=== PATIENT | male | born 1995 | race Caucasian/White ===

== ENCOUNTER 2025-01-16 06:39 | Emergency (ER) | payer OTHER, SELFPAY ==
[2025-01-16 06:40] VITALS: BP 133/96; PULSE 69; RESP 12; TEMP 36.1; O2SAT 98; BMI 31.5
--- NOTE | 2025-01-16 06:59 | ED.BACK ---
HPI - Back Pain/Injury General Chief Complaint: Back Pain/Injury Stated Complaint: Back Pain Time Seen by Provider: 01/16/25 06:48 Source: patient and family Mode of arrival: ambulatory Limitations: no limitations History of Present Illness ED Provider: DR. Sotelo HPI Narrative: 29-year-old male came in for evaluation of low back pain radiating to the right leg x1 week after playing golf, pain is severe 01/21, patient otherwise declined numbness or weakness, no urinary or stool incontinence, patient's pain worsening with movement or bending. No history of IV drug abuse, no fever, no chills. Related Data Previous Rx's ?Medication ?Instructions ?Recorded cyclobenzaprine 10 mg tablet 10 mg PO TID PRN muscle spasm #14 01/16/25 tabs oxycodone 5 mg tablet 5 mg PO Q6H PRN pain #14 tabs 01/16/25 Allergies Allergy/AdvReac Type Severity Reaction Status Date / Time No Known Allergies Allergy Verified 01/16/25 06:43 Review of Systems Review of Systems: All other systems are reviewed and are negative Constitutional: Reports as per HPI and Reports no additional constitutional complaints Eyes: Reports as per HPI and Reports no additional eye complaints Reports system reviewed and no additional complaints, except as documented Cardiovascular: Reports as per HPI and Reports no additional cardiovascular complaints Respiratory: Reports as per HPI and Reports no additional respiratory complaints Gastrointestinal: Reports as per HPI and Reports no additional gastrointestinal complaints Genitourinary: Reports no additional female genitourinary complaints Musculoskeletal: Reports no additional musculoskeletal complaints Skin/Breast: Reports system reviewed and no additional complaints, except as docu Psychiatric: Reports no additional psychiatric complaints Endocrine: Reports no additional endocrine complaints Hematologic/Lymphatic: Reports no additional hematologic/lymphatic complaints Allergic/Immunologic: Reports no additional allergic/immunologic complaints Reports system reviewed and no additional complaints, except as documented and Reports Abnormal speech present [facility] Social History Social History Do you have a plan to hurt others: No Plan Physical Exam Vital Signs: Vital Signs: Last Vital Signs Temp 96.9 F 01/16/25 06:40 Pulse 69 01/16/25 06:40 Resp 12 01/16/25 06:40 BP 133/96 H 01/16/25 06:40 Pulse Ox 98 01/16/25 06:40 O2 Del Method Room Air 01/16/25 06:40 BMI result Body Mass Index 31.5 Vital signs have been reviewed and appear to be correct. Blood pressure elevated. Heart rate normal. Respiratory rate normal. Temperature normal. Oxygen saturation normal. Appearance: Alert. Oriented X3. No acute distress. Head: Normal external exam. Normocephalic. Atraumatic. No Cueva signs noted. No raccoon eyes noted Eyes: PERRLA. EOMI. Conjunctiva and sclera normal. Eyelids normal. ENT: TM's Normal. Pharynx normal. Uvula midline. Moist mucous membranes. No trismus noted. No drooling noted. No muffled voice noted. Neck: Normal inspection. Neck supple. FROM. No adenopathy. Thyroid Normal. No meningeal signs. No neck mass noted. CVS: Normal heart rate and rhythm. Heart sound normal. No murmurs noted. Pulses normal throughout. Respiratory: No respiratory distress. Painless inspiration. Breath sounds normal. No wheezes/rales/rhonchi noted. Chest nontender. No accessory muscle usage noted or decreased air movement noted. Abdomen: Soft and nontender. Bowel sounds normal in all 4 quadrants. No distention noted. No organomegaly noted. No visible injury noted. Back: No CVA tenderness. Full range of motion noted. Skin: Skin warm and dry. Normal skin color. Normal skin turgor. No rashes/lesions/lacerations noted. Extremities: No lower extremity edema. Extremities exhibit normal range of motion. Extremities nontender. Neuro: Mental status: Normal attention, orientation, memory, and affect. Cranial nerves: Pupils are equal, round and reactive to light, EOMI, visual jack are fall, face is symmetric, facial sensations are normal. Motor examination normal muscle tone, strength to 4 extremities. DTR are +2, planter's are flexor. Sensory exam; normal coordination, no ataxia, gait stable. Cerebellar exam: Jqmcde-tv-mfyj and gfru-zh-heau is normal. Extrapyramidal system: No tremors, no rigidity with normal facial expressions. Pronator drift not present Course Reevaluation(s) Reevaluation #1: Lumbar radiculopathy. Rest, heating pad, muscle relaxant, pain control, follow-up with Dr. taylor for further evaluation. Will discharge on oxycodone muscle relaxant. Time: 07:04 Medical Decision Making Differential Diagnosis Differential Diagnoses: The differential diagnosis associated with the presentation includes (Myofascial low back pain, lumbar radiculopathy muscle,) Admission/Observation Consideration of admission/observation: Escalation of care including admission/observation considered Lab Data MDM Lab Attestation statement: I reviewed the patient's lab results. Discharge Plan Discharge Clinical Impression: Lumbar radiculopathy Patient Disposition: Home, Self-Care Instructions: Lumbar Radiculopathy (ED) Prescriptions: New oxycodone 5 mg tablet 5 mg PO Q6H PRN (Reason: pain) Qty: 14 0RF Rx Instructions: Partial Fill upon patient request. cyclobenzaprine 10 mg tablet 10 mg PO TID PRN (Reason: muscle spasm) Qty: 14 0RF Referrals: Emmanuel Christianson MD [Primary Care Provider, Internal Medicine] Matthew Zheng MD, PhD [Physician, Neuro Spine]
--- OUTSIDE RECORDS SUMMARY | 2025-01-16 07:50 | XMS_ITS | Clinical Summary ---
Author Organization [facility] Address [address] [place] [address] Phone Care Team Providers Care Colon Therapist Name Role Phone Marcos Roldan MD Primary Care Provider Allergies No known active allergies Medications albuterol 90 mcg/actuation inhalerIndicatio ns:Fever, unspecified,Acut e upper respiratory infection,Wheezi ng Inhale 2 puffs into the lungs every 4 (four) hours as needed for wheezing or shortness of breath/dyspnea . 18 g Active Active Problems No known active problems Social History Tobacco Use Types Packs/Day Years Used Date Smoking Tobacco: Never Smokeless Tobacco: Never Tobacco Cessation:Counseling Given: Not Answered Alcohol Use Standard Drinks/Week Comments Yes 0 (1 standard drink = 0.6 oz pur e alcohol) Education Answer Date Recorded Are you interested in more education? Not on osmar e 07/13/2024 Are you concerned about learning? Not on file 07/13/2024 No 07/13/2024 No 07/13/2024 Digital Access Answer Date Recorded No 07/13/2024 No 07/13/2024 Reliable internet access at home? Not on file 07/13/2024 Device with a working camera? Not on file Sex and Gender Information Value Date Recorded Sex Assigned at Not on file Legal Sex Male 8:53 PM EDT Gender Identity Not on file Sexual Orientation Not on file Last Filed Vital Signs Vital Sign Reading Time Taken Comments Blood Pressure 144/89 07/13/2024 10:31 AM EDT Pulse 89 07/13/2024 10:31 AM EDT Temperature 36.7 C (98.1 F) 07/13/2024 10:31 AM EDT Respiratory Rate 20 07/13/2024 10:31 AM EDT Oxygen Saturation 97% 07/13/2024 10:31 AM EDT Inhaled Oxygen Concentration - - Weight 111.1 kg (245 lb) 07/13/2024 10:31 AM EDT Height 188 cm (6' 2 ) 07/13/2024 10:31 AM EDT Body Mass Index 31.46 07/13/2024 10:31 AM EDT Plan of Treatment Health Maintenance Due Date Last Done Comments DEPRESSION SCREENING 2006 HEPATITIS C SCREENING 2012 HIV ONE-TIME SCREENING (18-65 YEARS) 2012 INFLUENZA VACCINE (#1) 2024 02/09/2009, 2008 COVID-19 VACCINE ( season) 2024 04/09/2021, 08/31/2020, 08/03/2020 Adult Td,Tdap Booster 05/27/2030 05/27/2020 , 11/10/2009, 09/24/2004, Additional history exists HIB VACCINES Completed 11/17/1995, 01/14, 1994, Additional history exists MENINGOCOCCAL VACCINES (ACWY) Completed 11/12/2012, 11/02/2007 SMOKING STATUS SCREENING (Once After 26 Yrs) Completed 07/13/2024 HEPATITIS A VACCINES Aged Out No long er eligible based on patient's age to complete this topic MENINGOCOCCAL VACCINES (B) Aged Out N o longer eligible based on patient's age to complete this topic PNEUMOCOCCAL VACCINES (0-49 years) Aged Out No longer eligible based on patient's age to complete this topic Medical Devices Not on file Insurance [employer] [place] [address] [place] [address] [place] [address] [place] [address] Care Teams Colon Therapist Relationship Specialty Start Date End Date Marcos Roldan MD [email or web address] PCP - General 07/13/24 Additional Source Comments The information contained in this document represents components of the legal health record. It is not the complete legal health record.[facility]
--- OUTSIDE RECORDS SUMMARY | 2025-01-16 07:50 | XMS_ITS | Clinical Summary ---
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 Anxiety 07/03/2018 Immunizations Name Administration Dates Next Due HIB 11/17/1995, 5,1994,10/03 HPV (Gardasil) 01/25/2013,12/07/2012 Hepatitis B > 19yrs 05/19/1995,1994,1994 Influenza (> 6 Months) 02/09/2009 Influenza H1N1 Pandemic Flu Vaccine 02/09/2009 MMR (Sbeygcu-Gyjou-Gbnzjhk) 09/11/1999, 6 Meningococcal (Menactra) 11/12/2012,11/02/2007 Polio (IPV) 09/11/1999 Polio (OPV) 02/10/1995,1994,1994 TD (STATE SUPPLIED FOR ADULT S AND CHILDREN) 09/24/2004 Tdap 09/11/1999, 6,02/10/1995,12/06,1994 Tdap (Adacel) 05/27/2020,11/10/2009 Varicella 09/05/1996 Family History Medical History Relation Name Comments Diabetes Father Cancer, Other Maternal Grandfather ?bladd er Allergies Mother CAD Negative Hx Hypertension Negative Hx Relation Name Status Comments Father Alive Maternal Grandfather Alive Maternal Grandmother Alive Mother Alive Paternal Grandfather Alive Paternal Grandmother Alive Sister Alive Social History Tobacco Use Types Packs/Day Years Used Date Smoking Tobacco: Never Smokeless Tobacco: Former Comments:(occ cigar) Alcohol Use Standard Drinks/Week Comments Yes 0 (1 standard drink = 0.6 oz pure alcohol) 1-2 times per month; 1-2 drinks Sex Assigned at Date Recorded Not on file Last Filed Vital Signs Vital Sign Reading Time Taken Comments Blood Pressure 122/76 06/05/2020 9:29 AM EST Pulse 86 06/05/2020 9:29 AM EST Temperature - - Respiratory Rate 16 06/05/2020 9:29 AM EST Oxygen Saturation - - Inhaled Oxygen Concentration - - Weight 110.2 kg (243 lb) 06/05/2020 9:29 AM EST Height 186.7 cm (6' 1.5 ) 06/05/2020 9:29 AM EST Body Mass Index 31.63 06/05/2020 9:29 AM EST Plan of Treatment Health Maintenance Due Date Last Done Comments Covid-19 Vaccine (#1) 02/05/1995 BASELINE HEALTH EXAM 18-39 07/04/202307/03, 07/03/2018, 04/20/2014, Additional history exists CHOLESTEROL SCREENING 07/04/2023 07/03/2018, 015 BMI CHECK/ADVISE 04/14/2024 07/24/2018, , 04/20/2014 INFLUENZA (#1) 2024 07/03/2018 (Refu sed), 02/09/2009 DTAP/TDAP/TD (4 - Td or Tdap) 05/27/2030, 11/10/2009, 09/24/2004, Additional history exists PNEUMOCOCCAL VACCINE FOR HIG H RISK PATIENTS (#1) 08/07/2059 Care Teams Principal Electrical Engineer Relationship Specialty Start Date End Date Jarrell Pop MD PCP - General 10/07/08
--- OUTSIDE RECORDS SUMMARY | 2025-01-16 07:50 | XMS_ITS | Encounter Summary ---
Author Organization [facility] Address [address] [place] [address] Care Team Providers Care Refrigerator Glazier Name Role Phone Jarrell Pop MD Primary Care Provider Unavail able Encounter Details Date Type Department Care Team Description 07/08/2018 Release of Information Medical Records [address] [place] [id number] Abstract, Provider Social History Tobacco Use Types Packs/Day Years Used Date Smoking Tobacco: Never Smokeless Tobacco: Former Comments:(occ cigar) Alcohol Use Standard Drinks/Week Comments Yes 0 (1 standard drink = 0.6 oz pure alcohol) 1-2 times per month; 1-2 drinks Sex Assigned at Date Recorded Not on file documented as of this encounter Plan of Treatment Not on file documented as of this encounter Visit Diagnoses Not on filedocumented in this encounter Care Teams Refrigerator Glazier Relationship Specialty Start Date End Date Jarrell Pop MD PCP - General 10/07/08 documented as of this encounter
--- NOTE | 2025-01-16 08:39 | PC.NURSE ---
RN to bedside for primary introductions, pt found sitting semi fowlers in the stretcher with skin warm and dry, respirations even and unlabored, visibly uncomfortable but without any acute distress. When asked about pain she denied pain and states she overall does not feel well and is experiencing fevers, chills and bodyaches which is her typical presentation when experiencing a gastritis flare/episode. The pt states she has been experiencing these symptoms x7 days, has been requesting ice since triage but had been told no by coffee supervisor. EDT obtained all her labs/urine prior to RN arrival to bedside. The pt was educated and informed on the plan of care, need for IV line and medications that would be given. The pt was abrupt, short, not personable, and rude towards this RN later apologizing for her behavior/commentary and her bedside visitor laughed and stated Yea I can't even talk to her at home when she's like this . The pt was given ice by an EDT who reports they received the okay from Dr Sotelo; however as soon as the pt had a few bites of the ice chips she began spitting up bile like emesis into a glass container she brought from home as emesis bags are gross . The pt reports that although the ice chips make her nauseous they help right when she takes them but then causes her to vomit. MD verduzco and staff advised to not give her anything else by mouth until she can hold items down. For this reason the pt's maalox will be held until her nausea/vomiting passes.
[2025-01-16 10:09] VITALS: BP 126/68; PULSE 62; RESP 16; TEMP 36.8; O2SAT 98
== END 2025-01-16 10:10 | disposition home or self-care (01) ==
PROVIDERS: Emergency Provider Emergency Medicine; PCP Student in an Organized Health Care Education/Training Program
DX: M54.16 Radiculopathy, lumbar region (principal)
CPT/HCPCS: 96374; 96375; 99284; J1171; J1885

== ENCOUNTER 2025-01-17 14:42 | Outpatient (AMB) | payer OTHER, SELFPAY ==
[2025-01-17 14:44] VITALS: BP 126/80; PULSE 88; TEMP 36.6; O2SAT 99; BMI 31.8
--- NOTE | 2025-01-17 14:44 | A.OFFPC_ITS ---
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 Accompanied by: Self / Same As Patient Allergies No Known Allergies Allergy (Verified 01/17/25 14:45) Medication List - Last Reconciled 01/17/25 by Emmanuel Christianson MD cyclobenzaprine 10 mg PO TID PRN naproxen sodium (Flanax (naproxen)) 220 mg PO BID PRN Tobacco use date assessed: 01/17/25 Dental Screening Dental Screen Date: 01/17/25 Did you have a dental visit in the last 12 months?: Yes Did you have a dental problem in the last 6 months where you did not have access to dental care?: No HPI HPI Comments History of Present Illness Details The patient is a 29-year-old male presenting with acute low back pain. The pain began last Friday while the patient was playing golf and occurred immediately after taking a swing. The patient describes the sensation as a hollow pop at the source of pain, which was followed by waves of pain increasing in severity over time. Initially, the pain was sharp and radiated throughout the entire body when moving, lasting about two days. Subsequently, it transitioned into severe muscle tightness, primarily affecting the right buttock, hamstring, and radiating down to the feet, accompanied by tingling and numbness. The patient reports these symptoms occur in waves, with occasional severe episodes causing him to collapse. The pain is somewhat alleviated by lying down, suggesting positional influence. He notes previous medication with naproxen and cyclobenzaprine provided limited relief. The patient experiences daily functional impairment, which impacts his ability to work and perform basic activities like sitting or standing for extended periods. Medical History: - No other reported medical conditions. Surgical History: - No prior surgical procedures. Medications: - Naproxen, used twice a day every four hours for pain management. - Cyclobenzaprine, taken as 10 mg for mu scle relaxation. Family History: - Heart disease in father (clogged arter ies and high cholesterol). - Diabetes in father. 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 - Substance use: Smokes cannabis; consum es five alcoholic drinks per week. - Functional status: Experiencing signif icant impairment due to back pain. [facility] Medical History (Updated 01/17/25 @ 15:10 by Emmanuel Christianson MD) Constipation Radiculopathy Low back pain Family History (Updated 01/17/25 @ 14:53 by Ami Marrero MA) Mother No problems noted. Father No problems noted. Social History Housing: Apartment Patient Tobacco Use Status: Never used Tobacco e-Cigarette/Vaping Use: Never Used service: No Current occupational status: employed Cognitive needs: No Hearing needs: No Vision needs: No Questionnaire PHQ-9 Over the last 2 weeks, how often have you been bothered by any of the following problems? 1. Little interest or pleasure in doing things: not at all 2. Feeling down, depressed, or hopeless: several days (sometimes) 3. Trouble falling or staying asleep, or sleeping too much: not at all 4. Feeling tired or having little energy: not at all 5. Poor appetite or overeating: not at all 6. Feeling bad about yourself - or that you are a failure or have let yourself or your family down: not at all 7. Trouble concentrating on things, such as reading the newspaper or watching television: not at all 8. Moving or speaking so slowly that other people could have noticed. Or the opposite - being so fidgety or restless that you have been moving around a lot more than usual: not at all 9. Thoughts that you would be better off or of hurting yourself in some way: not at all Total score: 1 Depression Screening Interpretation: Negative Depression Screening Done: Yes 59907 - PHQ-9 Billing: Yes Source: Developed by Drs. Pedrito Martínez, Desirae Hargrove, Zack Bills and colleagues, with an educational marta from [employer]. Thrive Questionnaire Date Thrive assessed: 01/17/25 I am a: Patient What is your living situation today?: I have a steady place to live Within the past 12 months, did the food you bought not last and you didn't have the money to get more?: Never true Within the past 12 months, did you worry whether your food would run out before you got money to buy more?: Never true Do you have trouble paying for medicines?: No Do you have trouble getting transportation to medical appointments?: No Do you have trouble paying your heating and electricity bill?: No Do you have trouble taking care of your child, family member or friend?: No Do you have trouble with day-to-day activities such as bathing, preparing meals, shopping, managing finances, etc.?: No Are you currently unemployed and looking for a job?: No Are you interested in more education?: No THRIVE Score: 0 AUDIT C Alcohol Use Questionnaire (AUDIT-C) 1. How often do you have a drink containing alcohol?: 4 or more times a week 2. How many drinks containing alcohol do you have on a typical day when you are drinking?: 1 or 2 3. How often do you have six or more drinks on one occasion?: Never Total Score: 4 Score Reviewed/Action Taken: Yes WEST-7 AMB Questionnaire WEST-7 Date WEST - 7 assessed: 01/17/25 Feeling nervous, anxious, or on edge: 0 = Not at all Not being able to stop or control worryin = Not at all Worrying too much about different things: 0 = Not at all Trouble relaxin = Not at all Being so restless that it is hard to sit still: 0 = Not at all Becoming easily annoyed or irritable: 0 = Not at all Feeling afraid as if something awful might happen: 0 = Not at all Total WEST-7 score (0-4 normal; 5-9 mild; 10-14 moderate; 15-21 severe): 0 Source: Developed by Drs. Pedrito Martínez, Desirae Hargrove, Zack Bills and colleagues, with an educational marta from [employer]. WEST-7 Assessment Billing WEST-7 Assessment Tool: WEST-7 Assessment 10221 Review of Systems Const Details: - Musculoskeletal: Reports low back pain, radiating to right buttock and leg with associated tingling and numbness. - Neurological: Reports tingling sensation in feet, denies weight loss. - Gastrointestinal: Reports constipation. - General: Denies fever, weight loss, loss of bowel control. All systems reviewed & are unremarkable except as reviewed in HPI and above Physical exam (Primary Care) Vital Signs: Last Vital Signs Temp 98 F 01/17/25 14:44 Pulse 88 01/17/25 14:44 BP 126/80 01/17/25 14:44 Pulse Ox 99 01/17/25 14:44 Oxygen Delivery Method Room Air 01/17/25 14:44 BMI result Body Mass Index 31.8 Tobacco/Smoking Status: Tobacco use Status Tobacco use date assessed 01/17/25 01/17/25 14:47 Patient Tobacco Use Status Never used Tobacco 01/17/25 14:54 e-Cigarette/Vaping Use Never Used 01/17/25 14:54 PHQ-9: PHQ-9 Score PHQ-9: Total score 1 01/17/25 15:03 Depression Screening Interpretation: Negative Thrive Assessment: Date of Thrive Assessment Date Thrive assessed 01/17/25 01/17/25 14:47 Const Other: General: +Alert and oriented, Well nourished, No acute distress. Eye: Pupils are equal, round and reactive to light, Intact accommodation, Extr aocular movements are intact, Normal conjunctiva, Vision unchanged. HENT: Normocephalic, Atraumatic, Tympanic membranes are clear, Normal hearing, Oral mucosa is moist, No pharyngeal erythema, Ear canals patent. Respiratory: Lungs CTA bilaterally, No wheeze, Respirations are non-labored. Cardiovascular: Regular rate, Regular rhythm, S1 auscultated, S2 auscultated, No murmur, Good pulses equal in all extremities, Normal peripheral perfusion, No edema. Gastrointestinal: Soft, Non-tender, Non-distended, Normal bowel sounds, No organomegaly, Constipated, infrequent bowel movements, hard stools. Musculoskeletal: Limited range of motion due to pain, Normal strength, Tenderness in lower back, No swelling, No deformity, Normal gait. Integumentary: Warm, Dry, [employer], Intact. Neurologic: Alert, Oriented, Normal sensory, Normal motor function, No focal defects, Cranial Nerves II-XII are grossly intact, Normal deep tendon reflexes. Psychiatric: Cooperative, Appropriate mood & affect, Normal judgment. Coding Level of Care Code New Pt Level 4 (32464) Diagnoses Acute right-sided low back pain with right-sided sciatica M54.41 Chronicity: acute Back pain laterality: right Sciatica presence: with sciatica Sciatica laterality: sciatica of right side Lumbar radiculopathy M54.16 Spinal region: lumbar Constipation, unspecified constipation type K59.00 Constipation type: unspecified constipation type Additional Codes PHQ-9 - 72767 - PHQ-9 Billing: Yes ([id number]) WEST-7 Assessment Billing - WEST-7 Assessment Tool: WEST-7 Assessment 28380 ([id number]) Assessment & Plan Assessment & Plan (1) Low back pain: Comment: - Educated the patient on non-pharmacological approaches such as heat packs, stretching, and exercises. - Continued use of ibuprofen 400 mg every six hours recommended over naproxen to minimize gastrointestinal side effects. - Physical therapy advised to enhance recovery and prevent further injury. - Monitoring of progression with plans for further imaging if no improvement (MRI, Xray to be ordered today) Code(s): M54.50 - Low back pain, unspecified Category: Medical Qualifiers: Chronicity: acute Back pain laterality: right Sciatica presence: with sciatica Sciatica laterality: sciatica of right side Qualified Code(s): M54.41 - Lumbago with sciatica, right side (2) Radiculopathy: Comment: - Cyclobenzaprine continues to be a valuable adjunct for muscle spasm. - Initiation of gabapentin 100 mg three times daily recommended for nerve pain. - Physical therapy to focus on pain management and functional improvement. Code(s): M54.10 - Radiculopathy, site unspecified Category: Medical Qualifiers: Spinal region: lumbar Qualified Code(s): M54.16 - Radiculopathy, lumbar region (3) Constipation: Comment: - Recommended use of bowel softeners such as MiraLax and increased fluid intake. - Advised lifestyle modifications to include more fiber in the diet. Code(s): K59.00 - Constipation, unspecified Category: Medical Qualifiers: Constipation type: unspecified constipation type Qualified Code(s): K59.00 - Constipation, unspecified Plan: - Advise on moderation of alcohol intake to prevent complications. - Strongly encouraged cessation of cannabis use to reduce potential impact on overall health and recovery. Patient was informed and verbally consented to the use of an ambient scribe for clinic note documentation during this visit.Health care maintenance: Plan During the patient's visit, I reviewed the details of his current musculoskeletal and neural symptoms, their acute exacerbation, and ongoing functional disruptions. I emphasized the need to limit reliance on opioids due to risk of dependency. I explained the benefits of ibuprofen versus naproxen regarding gastrointestinal protection and provided detailed guidance on cyclobenzaprine use, including its sedating effects. I suggested physical therapy as a critical component for recovery. We discussed the role of gabapentin for neuropathic pain and the approach to treating constipation, explaining how bowel regulation might aid in overall physical improvement. Follow-up plans and possible imaging were deliberated, conditional on symptomatology persistence or worsening. Orders: Orders Complete Blood Count Auto Diff Today Z76.89 - Persons encountering health services in other specified circumstances Hemoglobin A1c Today Z76.89 - Persons encountering health services in other specified circumstances Syphilis Screen Today Z76.89 - Persons encountering health services in other specified circumstances Hepatitis A,B,C Profile Today Z76.89 - Persons encountering health services in other specified circumstances PT Evaluation and Treatment Today M54.50 - Low back pain, unspecified CRP High Sensitivity Today M54.50 - Low back pain, unspecified Comprehensive Met. Panel Today Z76.89 - Persons encountering health services in other specified circumstances TSH reflex Free T4 Today Z76.89 - Persons encountering health services in other specified circumstances HIV Ab/Ag Today Z76.89 - Persons encountering health services in other specified circumstances Erythrocyte Sedimentation Rate Today M54.50 - Low back pain, unspecified XR lumbar spine 4V min Today M54.50 - Low back pain, unspecified Medications: New gabapentin 100 mg PO TID 90 caps 0RF 30 days Changed From cyclobenzaprine 10 mg PO TID PRN 14 tabs 0RF muscle spasm To cyclobenzaprine 10 mg PO TID 90 tabs 2RF muscle spasm 30 days Patient Instructions: - Use ibuprofen 400 mg every six hours for pain relief. - Continue cyclobenzaprine 10 mg every eight hours as prescribed. - Start gabapentin 100 mg three times a day, adjusting as needed. - Engage in physical therapy as scheduled to aid recovery. - Use heat therapy and perform recommended exercises to alleviate back pain. - Increase dietary fiber and hydration to address constipation. - Reduce alcohol consumption to less than five drinks a week. - Avoid cannabis use to improve health outcomes. - Notify if pain persists or worsens, or if new symptoms arise.
--- OUTSIDE RECORDS SUMMARY | 2025-01-17 17:09 | XMS_ITS | Clinical Summary ---
Author Organization [facility] Address [address] [place] [address] Phone Care Team Providers Care Chief Ophthalmic Technician Name Role Phone Marcos Roldan MD Primary [...] topic Medical Devices Not on file Insurance [email or web address] [place] [address] [employer] [place] [address] [place] [address] [place] [address] Care Teams Chief Ophthalmic Technician Relationship Specialty Start Date End Date Marcos Roldan MD [email or web address] PCP - General 07/13/24 Additional Source Comments The information contained in this document represents components of the legal health record. It is not the complete legal health record.[facility]
== END 2025-01-17 15:10 | disposition home or self-care (01) ==
LOC: HO.HMCHD 14:43
PROVIDERS: PCP Student in an Organized Health Care Education/Training Program; Visit Provider Student in an Organized Health Care Education/Training Program
DX: M54.41 Lumbago with sciatica, right side (principal); M54.16 Radiculopathy, lumbar region; K59.00 Constipation, unspecified

== ENCOUNTER 2025-01-17 14:42 | Outpatient (REF) | payer OTHER, SELFPAY ==
--- NOTE | ~2025-01-17 | XR_ITS ---
CLINICAL HISTORY: M54.50 - Low back pain, unspecified 5 views lumbar spine Comparison: None provided Findings: Normal alignment. No acute fractures or dislocation. No significant degenerative change. IMPRESSION: No acute findings. This document has been electronically signed by: Denisse Powell MD on 01/18/2025 22:14:32
[2025-01-17 16:21] LABS: MANUAL DIFF FLAG NO
[2025-01-17 17:48] LABS: Hematocrit 47.8 % (42.0-52.0); Hemoglobin 16.6 g/dl (14.0-18.0); Imm Gran Abs Auto 0.04 X10*3/uL (0.00-0.03); Imm Gran Pct Auto 0.3 % (0.0-0.4); Lymphocytes Absolute Auto 3.3 X10*3/uL (1.2-4.9); Mean Corpuscular HGB Conc 34.7 g/dl (31.0-36.0); Mean Corpuscular Hemoglobin 31.9 pg (27.0-33.0); Mean Corpuscular Volume 91.7 fL (80.0-98.0); NRBC Abs Auto 0.000 X10*3/uL (0.0-0.012); NRBC Pct Auto 0.0 /100WBC (0.0-0.2); Platelet Count 269 X10*3/uL (160-400); Red Blood Count 5.21 X10*6/uL (4.60-5.80); White Blood Count 11.8 X10*3/uL (4.8-10.8)
[2025-01-17 18:22] LABS: Alanine Aminotransferase 25 U/L (0-40); Albumin Level 5.0 g/dL (3.5-5.0); Alkaline Phosphatase 71 U/L (39-117); Anion Gap 12 (12-20); Aspartate Amino Transferase 23 U/L (5-37); Blood Urea Nitrogen 16 mg/dL (9-16); Calcium 10.3 mg/dL (8.4-10.2); Carbon Dioxide 32 mmol/L (22-29); Chloride 103 mmol/L (96-108); Estimated Glomerular Filt Rate > 60; Potassium 4.0 mmol/L (3.3-5.1); Sodium 143 mmol/L (135-145); Total Protein 8.1 g/dL (6.5-8.0)
[2025-01-17 18:23] LABS: Erythrocyte Sedimentation Rate 3 MM/HR (0-15)
[2025-01-18 07:49] LABS: Syphilis Screen Nonreactive (Nonreactive)
[2025-01-18 08:24] LABS: HBS Num1 8.73 mIU/mL (0-7.99); HBc Num1 0.07 S/CO (0.00-0.79); HBsAGNum1 0.26 S/CO (0.00-0.99); HIV Num 1 0.06 S/CO (0.00-0.99); Hepatitis A Antibody IgM 0.21 Index (0-0.79); Hepatitis B Surface Antigen Negative (Negative); ~HepC Num1 0.10 S/CO (0.00-0.79); ~Hepatitis A Antibody IgM Nonreactive (Nonreactive); ~Hepatitis C Antibody Nonreactive (Nonreactive)
[2025-01-18 12:08] LABS: HBS Num2 8.78 mIU/mL (0-7.99); HBS Num3 8.27 mIU/mL (0-7.99); ~Hepatitis B Surface Antibody GRAYZONE (Nonreactive)
== END 2025-01-17 14:43 | disposition home or self-care (01) ==
LOC: HO.LAB 14:42
PROVIDERS: PCP Student in an Organized Health Care Education/Training Program; Visit Provider Student in an Organized Health Care Education/Training Program
DX: M54.41 Lumbago with sciatica, right side (principal); M54.16 Radiculopathy, lumbar region; K59.00 Constipation, unspecified; Z13.1 Encounter for screening for diabetes mellitus; Z76.89 Persons encountering health services in other specified circumstances
CPT/HCPCS: 36415; 72110; 80053; 83036; 84443; 85025; 85652; 86141; 86704; 86706; 86709; 86780; 86803; 87340; 87389; 96127

== ENCOUNTER → 2025-01-17 15:18 | Outpatient (BNV) | payer OTHER, SELFPAY | PROVIDERS: PCP Student in an Organized Health Care Education/Training Program; Visit Provider Student in an Organized Health Care Education/Training Program | DX: M54.50 Low back pain, unspecified (principal) | CPT/HCPCS: 72110 ==